=== PATIENT | female | born 1980 | race Caucasian/White ===

== ENCOUNTER 2020-10-13 20:38 | Emergency (ER) | payer MEDICAID ==
[~2020-10-13] VITALS: Ht 165.1 cm; Wt 72.6 kg
[2020-10-13 20:42] VITALS: BP_SYST 136
[2020-10-13 21:15] VITALS: BP_SYST 136
== END 2020-10-13 21:15 | disposition home or self-care (01) ==
LOC: SED 20:38
DX: R07.89 Other chest pain (principal); E11.9 Type 2 diabetes mellitus without complications; Z88.0 Allergy status to penicillin
CPT/HCPCS: 93005; 99283

== ENCOUNTER 2021-04-05 07:42 | Emergency (ER) | payer MEDICAID ==
[~2021-04-05] VITALS: Ht 160 cm; Wt 81.6 kg
[2021-04-05 07:50] VITALS: BP_SYST 148
[2021-04-05] MEDS ORDERED: metFORMIN HCL 500 MG TABLET PO ONE (08:15)
[2021-04-05] MEDS ORDERED: INSULIN REGULAR, HUMAN 10 UNITS/0.1 ML INJ IVP ONE (08:15)
[2021-04-05] MEDS ORDERED: NACL 0.9% 1,000 ML IV ONE (08:15)
[2021-04-05 08:33] LABS: BASOPHILS # (AUTO) 0.2 K/uL (0.0-0.2); BASOPHILS % (AUTO) 1.9 % (0.0-2.0); EOSINOPHILS # (AUTO) 0.1 K/uL (0.0-0.4); EOSINOPHILS % (AUTO) 1.1 % (0.0-4.0); HEMOGLOBIN 16.3 g/dL (12.0-16.0); LYMPHOCYTES # (AUTO) 1.7 K/uL (1.0-5.5); MEAN CORPUSCULAR HEMOGLOBIN 29 pg (27-31); MEAN CORPUSCULAR HGB CONC 34 % (32-36); MEAN CORPUSCULAR VOLUME 87 fL (79.0-98.0); MONOCYTES # (AUTO) 0.5 K/uL (0.0-1.0); MONOCYTES % (AUTO) 5.2 % (1.7-9.3); NEUTROPHILS # (AUTO) 7.7 K/uL (1.8-7.7); NEUTROPHILS % (AUTO) 74.8 % (40.0-70.0); PLATELET COUNT (AUTO) 371 K/uL (130-430); RED BLOOD CELL COUNT(AUTO) 5.54 MIL/uL (4.2-6.2); RED CELL DISTRIBUTION WIDTH 12.9 % (9.0-15.0); WHITE BLOOD COUNT (AUTO) 10.2 K/uL (4.8-10.8)
[2021-04-05 08:47] LABS: CALCIUM 9.7 mg/dL (8.4-11.0); CREATININE 0.84 mg/dL (0.55-1.30)
[2021-04-05 08:49] LABS: PROTHROMBIN TIME 10.2 SECS (9.5-12.5)
[2021-04-05 10:25] VITALS: BP_SYST 128
[2021-04-05 10:46] LABS: BILIRUBIN,URINE NEGATIVE (NEGATIVE); CLARITY/URINE SL CLOUDY (CLEAR); COLOR,URINE YELLOW (YELLOW); GLUCOSE,URINE 3+ (NEGATIVE); KETONES,URINE NEGATIVE (NEGATIVE); LEUKOCYTE ESTERASE ,URINE 1+ (NEGATIVE); NITRITE, URINE POSITIVE (NEGATIVE); PH,URINE 5.5 (5.0-8.0); PROTEIN URINE NEGATIVE (NEGATIVE); UROBILINOGEN,URINE 0.2 (0.2-1.0)
[2021-04-05 11:16] LABS: BLOOD, URINE TRACE (NEGATIVE)
[2021-04-05 12:20] LABS: BACTERIA,URINE MANY /HPF (None Seen); MUCUS,URINE 1+ /LPF (None Seen); WBC,URINE 50-80 /HPF (0-3)
[2021-04-06] MEDS ORDERED: METF-834 PO (19:22)
== END 2021-04-05 10:26 ==
LOC: SED 07:42
DX: Z02.89 Encounter for other administrative examinations (principal); E11.9 Type 2 diabetes mellitus without complications; I10 Essential (primary) hypertension; Z88.0 Allergy status to penicillin; Z79.899 Other long term (current) drug therapy; Z79.84 Long term (current) use of oral hypoglycemic drugs
CPT/HCPCS: 36415; 80048; 81000; 82962; 85025; 85610; 85730; 87086; 96361; 96374; 99283; J7030; J1815

== ENCOUNTER 2021-04-06 17:31 | Emergency (ER) | payer MEDICAID ==
[~2021-04-06] VITALS: Ht 160 cm; Wt 81.6 kg
[2021-04-06 17:39] VITALS: BP_SYST 149
[2021-04-06] MEDS ORDERED: METF-834 PO (19:22)
[2021-04-06 19:41] VITALS: BP_SYST 137
== END 2021-04-06 19:39 | disposition home or self-care (01) ==
LOC: SED 17:31
DX: R07.89 Other chest pain (principal); E11.9 Type 2 diabetes mellitus without complications; M25.512 Pain in left shoulder; Z91.14 Patient's other noncompliance with medication regimen; Z88.0 Allergy status to penicillin
CPT/HCPCS: 36415; 82962; 84484; 93005; 99284

== ENCOUNTER 2021-05-20 16:56 | Emergency (ER) | payer MEDICAID ==
[~2021-05-20] VITALS: Ht 160 cm; Wt 87.5 kg
[~2021-05-20 16:56] MED LIST: METF-834 PO
[2021-05-20 17:14] VITALS: BP_SYST 121
[2021-05-20 17:59] LABS: BASOPHILS # (AUTO) 0.1 K/uL (0.0-0.2); BASOPHILS % (AUTO) 0.7 % (0.0-2.0); EOSINOPHILS # (AUTO) 0.1 K/uL (0.0-0.4); EOSINOPHILS % (AUTO) 0.9 % (0.0-4.0); HEMATOCRIT 44.6 % (36-48); HEMOGLOBIN 15.1 g/dL (12.0-16.0); LYMPHOCYTES # (AUTO) 2.9 K/uL (1.0-5.5); LYMPHOCYTES % (AUTO) 28.3 % (20.5-51.5); MEAN CORPUSCULAR HEMOGLOBIN 29 pg (27-31); MEAN CORPUSCULAR HGB CONC 34 % (32-36); MEAN CORPUSCULAR VOLUME 86 fL (79.0-98.0); MONOCYTES # (AUTO) 0.6 K/uL (0.0-1.0); MONOCYTES % (AUTO) 5.9 % (1.7-9.3); NEUTROPHILS # (AUTO) 6.6 K/uL (1.8-7.7); NEUTROPHILS % (AUTO) 64.2 % (40.0-70.0); PLATELET COUNT (AUTO) 346 K/uL (130-430); RED BLOOD CELL COUNT(AUTO) 5.18 MIL/uL (4.2-6.2); RED CELL DISTRIBUTION WIDTH 12.7 % (9.0-15.0); WHITE BLOOD COUNT (AUTO) 10.2 K/uL (4.8-10.8)
[2021-05-20 18:09] LABS: ANION GAP 11 (5-15); CALCIUM 8.8 mg/dL (8.4-11.0); CHLORIDE 91 mmol/L (98-107); CREATININE 0.91 mg/dL (0.55-1.30); POTASSIUM 3.6 mmol/L (3.5-5.1); SODIUM SERUM 127 mmol/L (136-145); UREA NITROGEN, BLOOD 14 mg/dL (8-21)
[2021-05-20 18:14] LABS: GFR AFRICAN AMERICAN 89 mL/min (>90); GLUCOSE 635 mg/dL (70-99)
--- NOTE | 2021-05-20 18:15 | NUR ---
Placed in room 07 . Placed on pvc monitor, blood pressure machine and pulse oximeter. To gown for exam. Side rails up. Report received from RADHA Husain
[2021-05-20 18:16] LABS: ALANINE AMINOTRANSFERASE 30 U/L (12-78); ASPARTATE AMINOTRANSFERASE 12 U/L (10-37); TOTAL BILIRUBIN 0.3 mg/dL (0.0-1.0)
--- NOTE | 2021-05-20 18:16 | NUR ---
Patient present to the ED via Wheelchair from home complaining of substernal chest pain non radiating with shortness of breath. Patient able to speak full sentences. Lung sounds are clear. Patient is a known Diabetic with Glucose in the 300s. AOx4. No other complaints/injuries per patient or as noted.
[2021-05-20] MEDS ORDERED: LR 500 ML IV ONE ×2 (18:30)
--- NOTE | 2021-05-20 18:32 | NUR ---
# 22 gauge angiocath placed to Left Hand. Use of asceptic technique. Opsite placed over site. Blood return noted. Flushed with 10 cc of normal saline. No evidence of infiltration noted. Patient tolerated well.
[2021-05-20] MEDS: LR 2,000 ML IV ONE (19:10)
--- NOTE | 2021-05-20 19:31 | NUR ---
ER at bedside examining patient.
[2021-05-20] MEDS: DIPHENHYDRAMINE INJ 50 MG/ML VIAL IVP ONE (20:55)
[2021-05-20] MEDS: METOCLOPRAMIDE HCL 10 MG/2 ML VIAL IVP ONE (20:56)
--- NOTE | 2021-05-20 20:56 | NUR ---
Report given to RADHA Duke
[2021-05-20] MEDS: INSULIN REGULAR, HUMAN 10 UNITS/0.1 ML INJ IVP ONE (21:18)
[2021-05-20 23:00] VITALS: BP_SYST 121
--- NOTE | 2021-05-20 23:00 | NUR ---
Patient does not wish to proceed with medical care recommended by Dr. Phillips. Patient given information related to possible complications, up to and including , which could occur as a result of leaving hospital at this time. Patient verbalizes understanding of risks involved leaving against medical advice. Patient has signed AMA form.
[2021-05-20] MEDS ORDERED: METO-290 PO (23:12)
[2021-05-20] MEDS ORDERED: DIPH25CA83 PO (23:12)
== END 2021-05-20 23:00 | disposition left against medical advice (07) ==
LOC: SED 16:56
DX: R07.89 Other chest pain (principal); R10.84 Generalized abdominal pain; E11.65 Type 2 diabetes mellitus with hyperglycemia; R00.0 Tachycardia, unspecified; Z88.0 Allergy status to penicillin; Z79.899 Other long term (current) drug therapy; Z95.5 Presence of coronary angioplasty implant and graft
CPT/HCPCS: 36415; 71045; 80053; 82962; 84484; 85025; 93005; 96361; 96374; 96375; 99285; J1200

== ENCOUNTER 2021-07-31 22:08 | Emergency (ER) | payer MEDICAID ==
[~2021-07-31] VITALS: Ht 160 cm; Wt 72.1 kg
[~2021-07-31 22:08] MED LIST changes: +DIPH25CA83 PO; +METO-290 PO
[2021-07-31 23:02] VITALS: BP_SYST 127
[2021-07-31] MEDS ORDERED: ASPIRIN 325 MG TABLET PO ONE (23:15)
[2021-07-31 23:38] LABS: BASOPHILS # (AUTO) 0.1 K/uL (0.0-0.2); BASOPHILS % (AUTO) 0.7 % (0.0-2.0); EOSINOPHILS # (AUTO) 0.1 K/uL (0.0-0.4); EOSINOPHILS % (AUTO) 1.5 % (0.0-4.0); HEMATOCRIT 46.9 % (36-48); HEMOGLOBIN 15.8 g/dL (12.0-16.0); LYMPHOCYTES # (AUTO) 2.4 K/uL (1.0-5.5); LYMPHOCYTES % (AUTO) 28.4 % (20.5-51.5); MEAN CORPUSCULAR HEMOGLOBIN 28 pg (27-31); MEAN CORPUSCULAR HGB CONC 34 % (32-36); MEAN CORPUSCULAR VOLUME 84 fL (79.0-98.0); MONOCYTES # (AUTO) 0.7 K/uL (0.0-1.0); MONOCYTES % (AUTO) 8.2 % (1.7-9.3); NEUTROPHILS # (AUTO) 5.3 K/uL (1.8-7.7); NEUTROPHILS % (AUTO) 61.2 % (40.0-70.0); PLATELET COUNT (AUTO) 328 K/uL (130-430); RED BLOOD CELL COUNT(AUTO) 5.57 MIL/uL (4.2-6.2); RED CELL DISTRIBUTION WIDTH 12.8 % (9.0-15.0); WHITE BLOOD COUNT (AUTO) 8.6 K/uL (4.8-10.8)
[2021-07-31 23:56] LABS: CALCIUM 8.8 mg/dL (8.4-11.0); CREATININE 0.81 mg/dL (0.55-1.30); POTASSIUM 3.5 mmol/L (3.5-5.1)
[2021-08-01 00:07] LABS: ALBUMIN 3.2 g/dL (3.4-4.8); TOTAL BILIRUBIN 0.3 mg/dL (0.0-1.0)
[2021-08-01] MEDS ORDERED: PRED20TA PO (02:34)
[2021-08-01] MEDS ORDERED: LORA10TA7 PO (02:34)
[2021-08-01] MEDS ORDERED: DEXAMETHASONE SOD PHOSPHATE 10 MG/ML VIAL IM ONE (03:00)
[2021-08-01] MEDS ORDERED: LORATADINE 10 MG TABLET PO ONE (03:00)
[2021-08-01 03:03] VITALS: BP_SYST 110
[2021-08-01] MEDS ORDERED: ALBMDI INH (03:04)
== END 2021-08-01 03:03 | disposition home or self-care (01) ==
LOC: SED 22:08
DX: J98.01 Acute bronchospasm (principal); E11.9 Type 2 diabetes mellitus without complications; Z79.899 Other long term (current) drug therapy; Z88.0 Allergy status to penicillin
CPT/HCPCS: 36415; 71045; 80053; 84484; 85025; 93005; 96372; 99285; J1100

== ENCOUNTER 2022-01-03 00:34 | Emergency (ER) | payer MEDICAID ==
[~2022-01-03] VITALS: Ht 165.1 cm; Wt 86.2 kg
[~2022-01-03 00:34] MED LIST changes: +ALBMDI INH; +LORA10TA7 PO; +PRED20TA PO
[2022-01-03 00:40] VITALS: BP_SYST 116
--- NOTE | 2022-01-03 00:40 | NUR ---
Patient triaged and placed in waiting room. VSS and patient appears in no acute distress at this time. Awaiting available bed, and MD notified of need for MSE.
--- NOTE | 2022-01-03 00:40 | NUR ---
Mahendra good in [facility] - 01/03/22 at [address]Dela Grande examining patient in the triage room.
--- NOTE | 2022-01-03 01:15 | NUR ---
Call pt name in the WR to place in the room,No answer.
--- NOTE | 2022-01-03 01:20 | NUR ---
Call pt name in the WR to place in the room,No answer.
--- NOTE | 2022-01-03 01:30 | NUR ---
Call pt name in the WR to place in the room,No answer.
--- NOTE | 2022-01-03 01:31 | NUR ---
Patient left without being seen.
[2022-01-03 01:42] LABS: BASOPHILS # (AUTO) 0.1 K/uL (0.0-0.2); BASOPHILS % (AUTO) 1.7 % (0.0-2.0); EOSINOPHILS # (AUTO) 0.1 K/uL (0.0-0.4); EOSINOPHILS % (AUTO) 1.2 % (0.0-4.0); HEMATOCRIT 43.7 % (36-48); HEMOGLOBIN 14.6 g/dL (12.0-16.0); LYMPHOCYTES # (AUTO) 2.3 K/uL (1.0-5.5); MEAN CORPUSCULAR HEMOGLOBIN 29 pg (27-31); MEAN CORPUSCULAR HGB CONC 34 % (32-36); MEAN CORPUSCULAR VOLUME 88 fL (79.0-98.0); MONOCYTES # (AUTO) 0.5 K/uL (0.0-1.0); MONOCYTES % (AUTO) 6.6 % (1.7-9.3); NEUTROPHILS # (AUTO) 4.5 K/uL (1.8-7.7); NEUTROPHILS % (AUTO) 60.5 % (40.0-70.0); PLATELET COUNT (AUTO) 343 K/uL (130-430); RED BLOOD CELL COUNT(AUTO) 4.97 MIL/uL (4.2-6.2); RED CELL DISTRIBUTION WIDTH 12.8 % (9.0-15.0); WHITE BLOOD COUNT (AUTO) 7.5 K/uL (4.8-10.8)
[2022-01-03 01:48] LABS: ANION GAP 8 (5-15); CALCIUM 9.1 mg/dL (8.4-11.0); CHLORIDE 95 mmol/L (98-107); CREATININE 1.08 mg/dL (0.55-1.30); POTASSIUM 3.9 mmol/L (3.5-5.1); SODIUM SERUM 131 mmol/L (136-145); UREA NITROGEN, BLOOD 8 mg/dL (8-21)
[2022-01-03 02:00] LABS: ALANINE AMINOTRANSFERASE 28 U/L (12-78); ALBUMIN 3.1 g/dL (3.4-4.8); ASPARTATE AMINOTRANSFERASE 17 U/L (10-37); TOTAL BILIRUBIN 0.5 mg/dL (0.0-1.0)
[2022-01-03 02:03] LABS: GFR AFRICAN AMERICAN 73 mL/min (>90); HCG,QUANTITATIVE 1 mIU/ML (0-6)
[2022-01-03 02:04] LABS: GLUCOSE 632 mg/dL (70-99)
== END 2022-01-03 01:31 | disposition left against medical advice (07) ==
LOC: SED 00:34
DX: R07.89 Other chest pain (principal); J45.909 Unspecified asthma, uncomplicated; E11.9 Type 2 diabetes mellitus without complications; Z88.0 Allergy status to penicillin; Z79.899 Other long term (current) drug therapy; Z53.21 Procedure and treatment not carried out due to patient leaving prior to being seen by health care provider
CPT/HCPCS: 36415; 80053; 82962; 84484; 84702; 85025; 93005

== ENCOUNTER 2022-04-12 03:48 | Emergency (ER) | payer MEDICAID ==
[~2022-04-12] VITALS: Ht 172.7 cm; Wt 90.7 kg
[2022-04-12 05:06] VITALS: BP_SYST 126
[2022-04-12 05:11] LABS: BILIRUBIN,URINE NEGATIVE (NEGATIVE); CLARITY/URINE CLEAR (CLEAR); COLOR,URINE YELLOW (YELLOW); GLUCOSE,URINE 3+ (NEGATIVE); KETONES,URINE NEGATIVE (NEGATIVE); LEUKOCYTE ESTERASE ,URINE TRACE (NEGATIVE); NITRITE, URINE POSITIVE (NEGATIVE); PROTEIN URINE NEGATIVE (NEGATIVE); UROBILINOGEN,URINE 0.2 (0.2-1.0)
[2022-04-12 05:17] LABS: BLOOD, URINE TRACE (NEGATIVE)
[2022-04-12] MEDS ORDERED: LORazepam 2 MG/ML VIAL IM ONE (05:30)
[2022-04-12 06:24] LABS: BASOPHILS # (AUTO) 0.1 K/uL (0.0-0.2); BASOPHILS % (AUTO) 1.1 % (0.0-2.0); EOSINOPHILS # (AUTO) 0.1 K/uL (0.0-0.4); EOSINOPHILS % (AUTO) 1.1 % (0.0-4.0); HEMATOCRIT 46.5 % (36-48); HEMOGLOBIN 16.4 g/dL (12.0-16.0); LYMPHOCYTES # (AUTO) 2.5 K/uL (1.0-5.5); LYMPHOCYTES % (AUTO) 22.5 % (20.5-51.5); MEAN CORPUSCULAR HEMOGLOBIN 30 pg (27-31); MEAN CORPUSCULAR HGB CONC 35 % (32-36); MEAN CORPUSCULAR VOLUME 84 fL (79.0-98.0); MONOCYTES # (AUTO) 0.7 K/uL (0.0-1.0); MONOCYTES % (AUTO) 6.4 % (1.7-9.3); NEUTROPHILS # (AUTO) 7.7 K/uL (1.8-7.7); NEUTROPHILS % (AUTO) 68.9 % (40.0-70.0); PLATELET COUNT (AUTO) 321 K/uL (130-430); RED BLOOD CELL COUNT(AUTO) 5.52 MIL/uL (4.2-6.2); RED CELL DISTRIBUTION WIDTH 12.7 % (9.0-15.0); WHITE BLOOD COUNT (AUTO) 11.2 K/uL (4.8-10.8)
[2022-04-12] MEDS ORDERED: NACL 0.9% 1,000 ML IV ONE ×2 (06:30→07:15)
[2022-04-12] MEDS ORDERED: cefTRIAXone 1 GM VIAL IM ONE (06:30)
[2022-04-12] MEDS ORDERED: cefTRIAXone 1 GM IVPB PREMIX 50 ML IV ONE (06:45)
[2022-04-12 06:47] LABS: ANION GAP 8 (5-15); CALCIUM 8.8 mg/dL (8.4-11.0); CHLORIDE 98 mmol/L (98-107); CREATININE 1.02 mg/dL (0.55-1.30); POTASSIUM 3.5 mmol/L (3.5-5.1); UREA NITROGEN, BLOOD 9 mg/dL (8-21)
[2022-04-12 06:51] LABS: ALANINE AMINOTRANSFERASE 31 U/L (12-78); ALBUMIN 3.5 g/dL (3.4-4.8); ASPARTATE AMINOTRANSFERASE 16 U/L (10-37)
[2022-04-12 06:54] LABS: BACTERIA,URINE MODERATE /HPF (None Seen)
[2022-04-12 06:54] LABS: GFR AFRICAN AMERICAN 77 mL/min (>90)
[2022-04-12 06:57] LABS: GLUCOSE 525 mg/dL (70-99)
[2022-04-12] MEDS ORDERED: INSULIN REGULAR, HUMAN 10 UNITS/0.1 ML, 3 ML VIAL IVP ONE (07:15)
[2022-04-12 07:53] LABS: ACETONE, SERUM NEGATIVE (NEGATIVE)
[2022-04-12 08:16] LABS: TOTAL BILIRUBIN 0.7 mg/dL (0.0-1.0)
[2022-04-12 10:10] VITALS: BP_SYST 108
[2022-04-12] MEDS ORDERED: IBUP-1969 PO (10:38)
== END 2022-04-12 10:56 | disposition home or self-care (01) ==
LOC: SED 03:48
DX: F41.9 Anxiety disorder, unspecified (principal); R07.89 Other chest pain; R55 Syncope and collapse; E11.9 Type 2 diabetes mellitus without complications; J45.909 Unspecified asthma, uncomplicated; Z88.0 Allergy status to penicillin; Z79.899 Other long term (current) drug therapy
CPT/HCPCS: 99285; 96365; 70450; 71045; 96361; 80053; 81000; 82009; 82962; 83930; 85025; 87086; 84484; 36415; 93005; 76376; 36600; 82803; 81025; 96372; J0696; J2060; J1815

== ENCOUNTER 2022-07-11 14:24 | Emergency (ER) | payer MEDICAID ==
[~2022-07-11] VITALS: Ht 162.6 cm; Wt 74.8 kg
[~2022-07-11 14:24] MED LIST changes: +IBUP-1969 PO
[2022-07-11 14:33] VITALS: BP_SYST 134
[2022-07-11 16:12] VITALS: BP_SYST 134
== END 2022-07-11 16:12 | disposition left against medical advice (07) ==
LOC: SED 14:24
DX: H43.12 Vitreous hemorrhage, left eye (principal); H53.8 Other visual disturbances; E11.9 Type 2 diabetes mellitus without complications; J45.909 Unspecified asthma, uncomplicated; I11.0 Hypertensive heart disease with heart failure; I50.9 Heart failure, unspecified; Z88.0 Allergy status to penicillin; Z79.899 Other long term (current) drug therapy
CPT/HCPCS: 99281

== ENCOUNTER 2022-07-24 04:25 | Emergency (ER) | payer MEDICAID ==
[~2022-07-24] VITALS: Ht 160 cm; Wt 81.6 kg
[2022-07-24 04:29] VITALS: BP_SYST 125
--- NOTE | 2022-07-24 04:39 | NUR ---
Patient arrived to ED 1 for c/o chest pain. Patient said she was getting for bed and changed into her pajamas when the chest pain started. Patient said she has history of high BP, Diabetes Patient denies eating, drinking, or doing anything else that might have brought on the chest pain. Patient describes chest pain as sharp. 12 lead EKG done and shown to Dr. New. Will continue to monitor.
--- NOTE | 2022-07-24 05:10 | NUR ---
MD Norris at bedside examining pt.
[2022-07-24] MEDS ORDERED: KETOROLAC TROMETHAMINE 60 MG/2 ML VIAL IM ONE (05:15)
[2022-07-24] MEDS ORDERED: NACL 0.9% 1,000 ML IV ONE (05:15)
[2022-07-24] MEDS ORDERED: KETOROLAC TROMETHAMINE 30 MG VIAL IVP ONE (05:15)
[2022-07-24] MEDS ORDERED: IBUP-1971 PO (05:24)
--- NOTE | 2022-07-24 05:28 | NUR ---
# 22 gauge angiocath placed to R HAND. Use of asceptic technique. Opsite placed over site. Blood return noted. Flushed with 10 cc of normal saline. No evidence of infiltration noted. Patient tolerated well.
[2022-07-24 06:31] VITALS: BP_SYST 130
--- NOTE | 2022-07-24 06:32 | NUR ---
Patient given written and verbal discharge instructions and verbalizes understanding. ER MD Norris discussed with patient the results and treatment provided. Patient in stable condition. ID arm band removed. IV catheter removed intact and dressing applied, no active bleeding. Rx of Motrin sent to preferred pharmacy. Patient educated on pain management and to follow up with PMD. Pain Scale 0/10. Opportunity for questions provided and answered. Medication side effect fact sheet provided.
== END 2022-07-24 06:32 | disposition home or self-care (01) ==
LOC: SED 04:25
DX: R07.89 Other chest pain (principal); J45.909 Unspecified asthma, uncomplicated; R06.02 Shortness of breath; R05.9 Cough, unspecified; E11.9 Type 2 diabetes mellitus without complications; I11.0 Hypertensive heart disease with heart failure; I50.9 Heart failure, unspecified; Z88.0 Allergy status to penicillin; Z79.899 Other long term (current) drug therapy
CPT/HCPCS: 99283; 96374; 96361; J1885; J7030; 93005

== ENCOUNTER 2022-09-30 00:49 | Emergency (ER) | payer MEDICAID ==
[~2022-09-30] VITALS: Ht 160 cm; Wt 81.6 kg
[~2022-09-30 00:49] MED LIST changes: +IBUP-1971 PO
[2022-09-30 01:04] VITALS: BP_SYST 134
--- NOTE | 2022-09-30 01:04 | NUR ---
Triaged and placed patient in ER bed 5 for evaluation. Report given to Franny GARCIA for continuity of care. VSS, no acute respiratory distress noted at this time. Instructed to notify ED staff for any changes in condition or worsening of symptoms. Patient verbalized understanding.
--- NOTE | 2022-09-30 01:10 | NUR ---
Pt is noted very Lethargic and Drawsy but responsive as she came from home C/O Syncopal E[isodes X2 with head injury and Left Kness pain with Headaches and Nausea. Pt care continue as awaits MD orders.
--- NOTE | 2022-09-30 01:20 | NUR ---
Dr. Spencer is at bedside examining the patient.
--- NOTE | 2022-09-30 01:45 | NUR ---
Pt is noted off the u it to CT. Pt care continue.
--- NOTE | 2022-09-30 02:00 | NUR ---
Pt is noted back from CT. Pt care continue.
--- NOTE | 2022-09-30 02:35 | NUR ---
Pt is noted moer alert, responbsive with no S/S off distress as awaits CT results. Pt care continue.
[2022-09-30] MEDS ORDERED: HYDROmorphone 1 MG/ML INJ. CARTRIDGE IM ONE (02:45)
[2022-09-30] MEDS ORDERED: INSULIN REGULAR, HUMAN 10 UNITS/0.1 ML, 3 ML VIAL SUBCUT ONE (03:00)
--- NOTE | 2022-09-30 03:05 | NUR ---
Insulin 4units SUBQ given for blood Glucose off 378 as ordered by . Pt care continue as awaits for her to given urine for Lab as ordered.
--- NOTE | 2022-09-30 03:27 | NUR ---
Pt is been discharge to home with all discharge instructions given as ordered as she is very alert and responsivre.
[2022-09-30 03:28] VITALS: BP_SYST 132
[2022-09-30 06:45] LABS: ANION GAP 10 (5-15); CALCIUM 8.7 mg/dL (8.4-11.0); CHLORIDE 99 mmol/L (98-107); GFR AFRICAN AMERICAN 119 mL/min (>90); GLUCOSE 385 mg/dL (70-99); UREA NITROGEN, BLOOD 10 mg/dL (8-21)
[2022-09-30 06:46] LABS: ALANINE AMINOTRANSFERASE 26 U/L (12-78); ALBUMIN 3.3 g/dL (3.4-4.8); ASPARTATE AMINOTRANSFERASE 19 U/L (10-37); TOTAL BILIRUBIN 0.5 mg/dL (0.0-1.0)
[2022-09-30 06:47] LABS: HEMOGLOBIN 14.6 g/dL (12.0-16.0); MEAN CORPUSCULAR HEMOGLOBIN 29 pg (27-31); MEAN CORPUSCULAR VOLUME 87 fL (79.0-98.0); RED BLOOD CELL COUNT(AUTO) 5.04 MIL/uL (4.2-6.2); WHITE BLOOD COUNT (AUTO) 8.2 K/uL (4.8-10.8)
[2022-09-30 06:48] LABS: BASOPHILS % (AUTO) 0.4 % (0.0-2.0); EOSINOPHILS % (AUTO) 1.3 % (0.0-4.0); LYMPHOCYTES % (AUTO) 38.7 % (20.5-51.5); MEAN CORPUSCULAR HGB CONC 34 % (32-36); NEUTROPHILS % (AUTO) 51.6 % (40.0-70.0); PLATELET COUNT (AUTO) 341 K/uL (130-430)
[2022-09-30 06:49] LABS: EOSINOPHILS # (AUTO) 0.1 K/uL (0.0-0.4); LYMPHOCYTES # (AUTO) 3.2 K/uL (1.0-5.5); MONOCYTES # (AUTO) 0.7 K/uL (0.0-1.0); NEUTROPHILS # (AUTO) 4.2 K/uL (1.8-7.7)
== END 2022-09-30 03:28 | disposition home or self-care (01) ==
LOC: SED 00:49
DX: R55 Syncope and collapse (principal); J45.909 Unspecified asthma, uncomplicated; E11.9 Type 2 diabetes mellitus without complications; I10 Essential (primary) hypertension; Z88.0 Allergy status to penicillin; Z79.899 Other long term (current) drug therapy
CPT/HCPCS: 36415; 70450-TC; 76376; 80053; 82962; 84484; 85025; 93005; 96372; 99285; J1815

== ENCOUNTER 2022-10-28 11:40 | Inpatient (IN) | payer MEDICAID ==
[~2022-10-28] VITALS: Ht 160 cm; Wt 64.0 kg
[~2022-10-28 11:40] MED LIST changes: +CIPR500S3 PO
[2022-10-28 11:43] VITALS: BP_SYST 121
[2022-10-28 12:25] LABS: HEMATOCRIT 46.9 % (36-48); HEMOGLOBIN 14.9 g/dL (12.0-16.0); MEAN CORPUSCULAR HEMOGLOBIN 29 pg (27-31); MEAN CORPUSCULAR HGB CONC 32 % (32-36); MEAN CORPUSCULAR VOLUME 90 fL (79.0-98.0); PLATELET COUNT (AUTO) 259 K/uL (130-430); RED BLOOD CELL COUNT(AUTO) 5.22 MIL/uL (4.2-6.2); RED CELL DISTRIBUTION WIDTH 14.6 % (9.0-15.0); WHITE BLOOD COUNT (AUTO) 16.2 K/uL (4.8-10.8)
[2022-10-28 12:34] LABS: ANION GAP 10 (5-15); CHLORIDE 108 mmol/L (98-107); GFR AFRICAN AMERICAN 43 mL/min (>90); INR 1.1 (0.8-1.2); UREA NITROGEN, BLOOD 30 mg/dL (8-21)
[2022-10-28 12:38] LABS: ALANINE AMINOTRANSFERASE 20 U/L (12-78); ALBUMIN 2.1 g/dL (3.4-4.8); ASPARTATE AMINOTRANSFERASE 15 U/L (10-37); TOTAL BILIRUBIN 0.5 mg/dL (0.0-1.0)
[2022-10-28 12:41] LABS: GLUCOSE 1061 mg/dL (70-99)
[2022-10-28 12:44] LABS: ACETONE, SERUM TRACE (NEGATIVE)
[2022-10-28 13:08] LABS: BAND % (MANUAL) 8 % (0-6); BASOPHILS % (MANUAL) 0 % (0-2); EOSINOPHILS % (MANUAL) 0 % (0-7); LYMPHOCYTES % (MANUAL) 11 % (20-46); MONOCYTES % (MANUAL) 10 % (0-11)
[2022-10-28] MEDS ORDERED: INSULIN REGULAR, HUMAN 10 UNITS/0.1 ML, 3 ML VIAL ONE (13:20)
[2022-10-28] MEDS ORDERED: NACL 0.9% 1,000 ML IV ONE ×3 (13:30→16:00)
[2022-10-28] MEDS ORDERED: INSULIN REGULAR, HUMAN 100 UNITS in NS 99 ML IV ONE ×2 (13:30)
[2022-10-28] MEDS ORDERED: INSULIN REGULAR, HUMAN 10 UNITS/0.1 ML, 3 ML VIAL IVP ONE (13:30)
[2022-10-28 13:58] LABS: BILIRUBIN,URINE NEGATIVE (NEGATIVE); BLOOD, URINE 2+ (NEGATIVE); CLARITY/URINE CLEAR (CLEAR); COLOR,URINE YELLOW (YELLOW); GLUCOSE,URINE 3+ (NEGATIVE); KETONES,URINE NEGATIVE (NEGATIVE); LEUKOCYTE ESTERASE ,URINE 1+ (NEGATIVE); NITRITE, URINE NEGATIVE (NEGATIVE); PH,URINE 5.5 (5.0-8.0); PROTEIN URINE NEGATIVE (NEGATIVE); UROBILINOGEN,URINE 0.2 (0.2-1.0)
[2022-10-28 14:07] LABS: BACTERIA,URINE FEW /HPF (None Seen); MUCUS,URINE 1+ /LPF (None Seen); RBC,URINE 0-3 /HPF (0-3)
[2022-10-28] MEDS ORDERED: NACL 0.9% 3,000 ML IV ONE (16:00)
[2022-10-28] MEDS ORDERED: cefTRIAXone 1 GM IVPB PREMIX 50 ML IV ONE (16:00)
[2022-10-28] MEDS ORDERED: DEXTROSE 50% JECT 50 ML DISP.SYRIN IVP PRN ×2 (16:45)
[2022-10-28] MEDS: INSULIN REGULAR, HUMAN 100 UNITS/ML, 3 ML VIAL (humuLIN R) SUBCUT PRN ×2 (18:41→23:20)
[2022-10-28 18:49] VITALS: BP_SYST 117
[2022-10-28 20:55] LABS: HCG,QUAL RESULT NEGATIVE (NEGATIVE)
[2022-10-28] MEDS ORDERED: ALBUTEROL MDI INHALATION 8 GM INH INH PRN (21:00)
[2022-10-28 21:03] LABS: BARBITURATE, URINE NEGATIVE (NEG <=200); BENZODIAZEPINE, URINE NEGATIVE (NEG <=150); CANNABINOID, URINE NEGATIVE (NEG <=50); COCAINE, URINE NEGATIVE (NEG <=150); OPIATE, URINE NEGATIVE (NEG <=100); PHENCYCLIDINE SCREEN,URINE NEGATIVE (NEG <=25); UR TRICYCLIC ANTIDEPRESSANTS NEGATIVE (NEG <=300); URINE METHADONE NEGATIVE (NEG <=200); URINE OXYCODONE SCREEN NEGATIVE (NEG <=100); URINE PROPOXYPHENE SCREEN NEGATIVE (NEG <=300)
[2022-10-28 21:04] LABS: METHAMPHETAMINES SCREEN,URINE POSITIVE (NEG <=500); URINE AMPHETAMINE POSITIVE (NEG <=500)
[2022-10-28] MEDS ORDERED: HALOPERIDOL LACTATE 5 MG/ML VIAL IM PRN (21:15)
[2022-10-28 23:00] VITALS: BP_SYST 115
[2022-10-28] MEDS: LORazepam 2 MG/ML VIAL IVP PRN (23:08)
[2022-10-28] MEDS: NACL 0.9% 1,000 ML IV SCH (23:11)
[2022-10-29] VITALS (16 sets, daily range): BP systolic 101–134
[2022-10-29] MEDS: NACL 0.9% 1,000 ML IV SCH ×2 (03:28→05:38)
[2022-10-29] MEDS: INSULIN REGULAR, HUMAN 100 UNITS/ML, 3 ML VIAL (humuLIN R) SUBCUT PRN ×5 (03:30→20:21)
[2022-10-29 04:42] LABS: BASOPHILS # (AUTO) 0.1 K/uL (0.0-0.2); BASOPHILS % (AUTO) 0.5 % (0.0-2.0); EOSINOPHILS # (AUTO) 0.1 K/uL (0.0-0.4); EOSINOPHILS % (AUTO) 0.4 % (0.0-4.0); HEMATOCRIT 41.7 % (36-48); HEMOGLOBIN 13.7 g/dL (12.0-16.0); LYMPHOCYTES # (AUTO) 1.9 K/uL (1.0-5.5); LYMPHOCYTES % (AUTO) 13.8 % (20.5-51.5); MEAN CORPUSCULAR HEMOGLOBIN 29 pg (27-31); MEAN CORPUSCULAR HGB CONC 33 % (32-36); MEAN CORPUSCULAR VOLUME 87 fL (79.0-98.0); MONOCYTES % (AUTO) 7.3 % (1.7-9.3); NEUTROPHILS # (AUTO) 10.7 K/uL (1.8-7.7); PLATELET COUNT (AUTO) 258 K/uL (130-430); RED BLOOD CELL COUNT(AUTO) 4.81 MIL/uL (4.2-6.2); RED CELL DISTRIBUTION WIDTH 14.3 % (9.0-15.0); WHITE BLOOD COUNT (AUTO) 13.7 K/uL (4.8-10.8)
[2022-10-29 05:12] LABS: ALANINE AMINOTRANSFERASE 18 U/L (12-78); ALBUMIN 1.8 g/dL (3.4-4.8); ANION GAP 9 (5-15); ASPARTATE AMINOTRANSFERASE 15 U/L (10-37); CALCIUM 8.3 mg/dL (8.4-11.0); CREATININE 1.19 mg/dL (0.55-1.30); FREE T4 (FREE THYROXINE) 0.5 ng/dL (0.6-1.6); GFR AFRICAN AMERICAN 65 mL/min (>90); GLUCOSE 366 mg/dL (70-99); PHOSPHORUS 3.2 mg/dL (2.7-4.5); THYROID STIMULATING HORMONE 3.27 uIu/mL (0.34-4.82); TOTAL BILIRUBIN 0.3 mg/dL (0.0-1.0); UREA NITROGEN, BLOOD 22 mg/dL (8-21)
[2022-10-29 05:43] LABS: CHLORIDE 130 mmol/L (98-107)
[2022-10-29] MEDS: INSULIN GLARGINE 100 UNITS/ML, 10 ML VIAL SUBCUT SCH (08:35)
[2022-10-29] MEDS: POTASSIUM CHLORIDE 10 MEQ in 0.45% NACL 1,000 ML IV SCH ×2 (08:37→15:47)
[2022-10-29] MEDS ORDERED: cefTRIAXone 1 GM in D5W 50 ML IV SCH (11:00)
[2022-10-30] VITALS: BP_SYST 130
[2022-10-30] MEDS: IBUPROFEN 800 MG TABLET PO PRN (00:07)
[2022-10-30] MEDS: INSULIN REGULAR, HUMAN 100 UNITS/ML, 3 ML VIAL (humuLIN R) SUBCUT PRN ×4 (00:19→11:20)
[2022-10-30] MEDS ORDERED: KCL 10 mEq in 50 mL (PREMIX) 50 ML IV ONE (01:04)
[2022-10-30 01:09] VITALS: BP_SYST 130
[2022-10-30] MEDS: POTASSIUM CHLORIDE 10 MEQ in 0.45% NACL 1,000 ML IV SCH ×3 (01:24→14:01)
[2022-10-30 07:29] LABS: BASOPHILS # (AUTO) 0.1 K/uL (0.0-0.2); BASOPHILS % (AUTO) 0.5 % (0.0-2.0); EOSINOPHILS # (AUTO) 0.1 K/uL (0.0-0.4); EOSINOPHILS % (AUTO) 0.8 % (0.0-4.0); HEMOGLOBIN 12.9 g/dL (12.0-16.0); LYMPHOCYTES # (AUTO) 1.9 K/uL (1.0-5.5); LYMPHOCYTES % (AUTO) 12.3 % (20.5-51.5); MEAN CORPUSCULAR HEMOGLOBIN 29 pg (27-31); MEAN CORPUSCULAR HGB CONC 33 % (32-36); MEAN CORPUSCULAR VOLUME 87 fL (79.0-98.0); MONOCYTES # (AUTO) 0.7 K/uL (0.0-1.0); MONOCYTES % (AUTO) 4.4 % (1.7-9.3); NEUTROPHILS # (AUTO) 12.7 K/uL (1.8-7.7); PLATELET COUNT (AUTO) 261 K/uL (130-430); RED BLOOD CELL COUNT(AUTO) 4.51 MIL/uL (4.2-6.2); RED CELL DISTRIBUTION WIDTH 14.6 % (9.0-15.0); WHITE BLOOD COUNT (AUTO) 15.5 K/uL (4.8-10.8)
[2022-10-30 07:43] LABS: ALBUMIN 1.6 g/dL (3.4-4.8); CALCIUM 7.4 mg/dL (8.4-11.0); CREATININE 0.94 mg/dL (0.55-1.30); FREE T4 (FREE THYROXINE) 0.6 ng/dL (0.6-1.6); THYROID STIMULATING HORMONE 3.27 uIu/mL (0.34-4.82); TOTAL BILIRUBIN 0.6 mg/dL (0.0-1.0)
[2022-10-30 08:00] VITALS: BP_SYST 111
[2022-10-30] MEDS: INSULIN GLARGINE 100 UNITS/ML, 10 ML VIAL SUBCUT SCH (08:38)
[2022-10-30] MEDS ORDERED: INSULIN Lispro 100 UNITS/ML, 3 ML VIAL (humaLOG) SUBCUT ONE (12:00)
[2022-10-30 12:30] VITALS: BP_SYST 122
[2022-10-30 16:00] VITALS: BP_SYST 118
[2022-10-30] MEDS: INSULIN Lispro 100 UNITS/ML, 3 ML VIAL (humaLOG) SUBCUT SCH (17:37)
[2022-10-30] MEDS: INSULIN LISPRO SLIDING SCALE 100 UNITS/ML, 3 ML VIAL (humaLOG) SUBCUT PRN ×2 (17:38→22:00)
[2022-10-30 21:02] VITALS: BP_SYST 134
[2022-10-31 00:03] VITALS: BP_SYST 128
[2022-10-31] MEDS: IBUPROFEN 800 MG TABLET PO PRN (00:04)
[2022-10-31] MEDS: POTASSIUM CHLORIDE 10 MEQ in 0.45% NACL 1,000 ML IV SCH ×3 (01:40→10:03)
[2022-10-31 05:46] VITALS: BP_SYST 126
[2022-10-31] MEDS: INSULIN Lispro 100 UNITS/ML, 3 ML VIAL (humaLOG) SUBCUT SCH ×3 (06:57→17:11)
[2022-10-31] MEDS: INSULIN LISPRO SLIDING SCALE 100 UNITS/ML, 3 ML VIAL (humaLOG) SUBCUT PRN ×3 (06:58→17:10)
[2022-10-31 07:32] LABS: BASOPHILS # (AUTO) 0.1 K/uL (0.0-0.2); BASOPHILS % (AUTO) 0.7 % (0.0-2.0); EOSINOPHILS # (AUTO) 0.1 K/uL (0.0-0.4); EOSINOPHILS % (AUTO) 0.9 % (0.0-4.0); HEMATOCRIT 38.5 % (36-48); HEMOGLOBIN 12.6 g/dL (12.0-16.0); LYMPHOCYTES # (AUTO) 1.5 K/uL (1.0-5.5); LYMPHOCYTES % (AUTO) 11.3 % (20.5-51.5); MEAN CORPUSCULAR HEMOGLOBIN 28 pg (27-31); MEAN CORPUSCULAR HGB CONC 33 % (32-36); MEAN CORPUSCULAR VOLUME 86 fL (79.0-98.0); MONOCYTES # (AUTO) 0.3 K/uL (0.0-1.0); MONOCYTES % (AUTO) 2.5 % (1.7-9.3); NEUTROPHILS # (AUTO) 11.1 K/uL (1.8-7.7); NEUTROPHILS % (AUTO) 84.6 % (40.0-70.0); PLATELET COUNT (AUTO) 237 K/uL (130-430); RED BLOOD CELL COUNT(AUTO) 4.47 MIL/uL (4.2-6.2); RED CELL DISTRIBUTION WIDTH 14.3 % (9.0-15.0); WHITE BLOOD COUNT (AUTO) 13.1 K/uL (4.8-10.8)
[2022-10-31] MEDS: INSULIN GLARGINE 100 UNITS/ML, 10 ML VIAL SUBCUT SCH ×2 (07:42→22:20)
[2022-10-31 07:49] LABS: CALCIUM 7.2 mg/dL (8.4-11.0); CREATININE 0.79 mg/dL (0.55-1.30)
[2022-10-31 08:00] VITALS: BP_SYST 119
[2022-10-31 12:00] VITALS: BP_SYST 127
[2022-10-31 12:30] VITALS: BP_SYST 114
[2022-10-31 20:00] VITALS: BP_SYST 115
[2022-10-31] MEDS: ALBUTEROL SULFATE 0.083% 2.5 MG/3 ML VIAL.NEB INH PRN (22:40)
[2022-11-01] VITALS: BP_SYST 114
[2022-11-01 08:00] VITALS: BP_SYST 117
[2022-11-01] MEDS: INSULIN Lispro 100 UNITS/ML, 3 ML VIAL (humaLOG) SUBCUT SCH ×3 (08:17→17:35)
[2022-11-01 08:44] VITALS: BP_SYST 114
[2022-11-01] MEDS: INSULIN GLARGINE 100 UNITS/ML, 10 ML VIAL SUBCUT SCH ×2 (10:19→21:00)
[2022-11-01 12:33] VITALS: BP_SYST 94
[2022-11-01 15:12] LABS: BASOPHILS % (AUTO) 0.1 % (0.0-2.0); EOSINOPHILS # (AUTO) 0.1 K/uL (0.0-0.4); EOSINOPHILS % (AUTO) 0.7 % (0.0-4.0); HEMATOCRIT 40.8 % (36-48); HEMOGLOBIN 13.4 g/dL (12.0-16.0); LYMPHOCYTES # (AUTO) 1.1 K/uL (1.0-5.5); LYMPHOCYTES % (AUTO) 10.5 % (20.5-51.5); MEAN CORPUSCULAR HEMOGLOBIN 29 pg (27-31); MEAN CORPUSCULAR HGB CONC 33 % (32-36); MEAN CORPUSCULAR VOLUME 87 fL (79.0-98.0); MONOCYTES # (AUTO) 0.4 K/uL (0.0-1.0); NEUTROPHILS # (AUTO) 9.1 K/uL (1.8-7.7); NEUTROPHILS % (AUTO) 84.7 % (40.0-70.0); PLATELET COUNT (AUTO) 246 K/uL (130-430); RED BLOOD CELL COUNT(AUTO) 4.68 MIL/uL (4.2-6.2); RED CELL DISTRIBUTION WIDTH 13.9 % (9.0-15.0); WHITE BLOOD COUNT (AUTO) 10.7 K/uL (4.8-10.8)
[2022-11-01 15:14] LABS: CALCIUM 7.4 mg/dL (8.4-11.0); CREATININE 0.9 mg/dL (0.55-1.30)
[2022-11-01] MEDS ORDERED: INSULIN NPH 100 UNITS/ML 10 ML VIAL SUBCUT ONE (16:00)
[2022-11-01 16:33] VITALS: BP_SYST 118
[2022-11-01] MEDS: ALBUTEROL SULFATE 0.083% 2.5 MG/3 ML VIAL.NEB INH PRN (17:54)
[2022-11-01] MEDS: LORazepam 2 MG/ML VIAL IVP PRN (18:34)
[2022-11-01 20:00] VITALS: BP_SYST 113
[2022-11-02 01:50] VITALS: BP_SYST 110
[2022-11-02] MEDS: INSULIN Lispro 100 UNITS/ML, 3 ML VIAL (humaLOG) SUBCUT SCH ×2 (07:00→12:21)
[2022-11-02] MEDS: INSULIN LISPRO SLIDING SCALE 100 UNITS/ML, 3 ML VIAL (humaLOG) SUBCUT PRN (07:03)
[2022-11-02 08:10] VITALS: BP_SYST 122
[2022-11-02] MEDS: INSULIN GLARGINE 100 UNITS/ML, 10 ML VIAL SUBCUT SCH (10:29)
[2022-11-02 12:00] VITALS: BP_SYST 121
[2022-11-02 17:00] VITALS: BP_SYST 144
== END 2022-11-02 16:15 | disposition left against medical advice (07) | DRG 420 ==
LOC: SED 11:55 → STU 15:52 → SIC 22:13 → STU 10-29 13:11 → SMU 10-31 23:16
PROVIDERS: ADMIT Internal Medicine; ATTEND Internal Medicine
DX: E11.65 Type 2 diabetes mellitus with hyperglycemia (principal); N17.0 Acute kidney failure with tubular necrosis; E43 Unspecified severe protein-calorie malnutrition; E87.0 Hyperosmolality and hypernatremia; R65.10 Systemic inflammatory response syndrome (SIRS) of non-infectious origin without acute organ dysfunction; R07.89 Other chest pain; E86.0 Dehydration; Z20.822 Contact with and (suspected) exposure to COVID-19; F15.10 Other stimulant abuse, uncomplicated; I10 Essential (primary) hypertension; N39.0 Urinary tract infection, site not specified; E55.9 Vitamin D deficiency, unspecified; J45.909 Unspecified asthma, uncomplicated; F23 Brief psychotic disorder; Z79.84 Long term (current) use of oral hypoglycemic drugs; Z88.0 Allergy status to penicillin; Z79.899 Other long term (current) drug therapy; Z79.4 Long term (current) use of insulin; Z79.1 Long term (current) use of non-steroidal anti-inflammatories (NSAID); Z68.25 Body mass index [BMI] 25.0-25.9, adult
CPT/HCPCS: 36415; 71045; 80048; 80053; 80307; 81000; 82009; 82306; 82962; 83735; 84100; 84436; 84439; 84443; 84484; 84703; 85007; 85025; 85027; 85610-TC; 85730-TC; 87040; 87081; 87086; 93005; 93306; 94640; 94760; 97110-GP; 97116-GP; 97530-GP; 99285; G0378; J0696; J1815; J1956; J2060; J3480; J7030; J7060; J7613

== ENCOUNTER 2023-03-06 01:13 | Emergency (ER) | payer MEDICAID ==
[~2023-03-06] VITALS: Ht 160 cm; Wt 95.3 kg
[~2023-03-06 01:13] MED LIST changes: -CIPR500S3 PO; +CIPR500S4 PO
[2023-03-06 01:20] VITALS: BP_SYST 127; PULSE 102; RESP 16; TEMP 97.4; O2SAT 99
[2023-03-06] MEDS ORDERED: NACL 0.9% 1,000 ML IV ONE (03:00)
[2023-03-06 03:01] LABS: BASOPHILS # (AUTO) 0.1 K/uL (0.0-0.2); BASOPHILS % (AUTO) 0.8 % (0.0-2.0); EOSINOPHILS # (AUTO) 0.1 K/uL (0.0-0.4); EOSINOPHILS % (AUTO) 1.3 % (0.0-4.0); HEMATOCRIT 46.9 % (36-48); HEMOGLOBIN 15.5 g/dL (12.0-16.0); LYMPHOCYTES # (AUTO) 2.4 K/uL (1.0-5.5); LYMPHOCYTES % (AUTO) 29.5 % (20.5-51.5); MEAN CORPUSCULAR HEMOGLOBIN 28 pg (27-31); MEAN CORPUSCULAR HGB CONC 33 % (32-36); MEAN CORPUSCULAR VOLUME 85 fL (79.0-98.0); MONOCYTES # (AUTO) 0.6 K/uL (0.0-1.0); MONOCYTES % (AUTO) 7.2 % (1.7-9.3); NEUTROPHILS # (AUTO) 4.9 K/uL (1.8-7.7); NEUTROPHILS % (AUTO) 61.2 % (40.0-70.0); PLATELET COUNT (AUTO) 422 K/uL (130-430); RED BLOOD CELL COUNT(AUTO) 5.51 MIL/uL (4.2-6.2); RED CELL DISTRIBUTION WIDTH 12.8 % (9.0-15.0)
[2023-03-06 03:23] LABS: ALANINE AMINOTRANSFERASE 25 U/L (12-78); ALBUMIN 3.6 g/dL (3.4-4.8); ANION GAP 1 (5-15); ASPARTATE AMINOTRANSFERASE 16 U/L (10-37); CALCIUM 9.2 mg/dL (8.4-11.0); CARBON DIOXIDE 32 mmol/L (23-29); CHLORIDE 93 mmol/L (98-107); CREATININE 0.82 mg/dL (0.55-1.30); GFR AFRICAN AMERICAN 99 mL/min (>90); POTASSIUM 3.4 mmol/L (3.5-5.1); SODIUM SERUM 126 mmol/L (136-145); TOTAL BILIRUBIN 0.4 mg/dL (0.0-1.0); TOTAL PROTEIN, SERUM 8.3 g/dL (6.4-8.3); UREA NITROGEN, BLOOD 8 mg/dL (8-21)
[2023-03-06 03:30] VITALS: BP_SYST 131; PULSE 100; RESP 16; TEMP 97.4; O2SAT 99
[2023-03-06 03:31] LABS: GFR NON AFRICAN-AMERICAN 82 mL/min (>90)
[2023-03-06 03:32] LABS: GLUCOSE 454 mg/dL (74-106)
[2023-03-06] MEDS ORDERED: INSULIN REGULAR, HUMAN 10 UNITS/0.1 ML, 3 ML VIAL IVP ONE (03:45)
== END 2023-03-06 05:40 | disposition home or self-care (01) ==
LOC: SED 01:13
DX: E11.65 Type 2 diabetes mellitus with hyperglycemia (principal); R55 Syncope and collapse; J45.909 Unspecified asthma, uncomplicated; I10 Essential (primary) hypertension; Z88.0 Allergy status to penicillin; Z79.899 Other long term (current) drug therapy
CPT/HCPCS: 99284; 96374; 96361; 80053; 82962; 85025; 86403; 84484; 36415; 93005; 87081; J7030; J1815